=== PATIENT | male | born 1985 | race Two or more races ===

== ENCOUNTER 2020-10-26 13:07 | Emergency (ER) | payer SELFPAY ==
[~2020-10-26] VITALS: Ht 180.3 cm; Wt 86.2 kg
[2020-10-26 13:10] VITALS: BP 141/98
== END 2020-10-26 14:45 | disposition left against medical advice (07) ==
LOC: ER 13:07 → EDBD 13:07 → ER 14:45
DX: T39.9 Poisoning by, adverse effect of and underdosing of unspecified nonopioid analgesic, antipyretic and antirheumatic (principal); F17.210 Nicotine dependence, cigarettes, uncomplicated; F12.10 Cannabis abuse, uncomplicated; Y92.89 Other specified places as the place of occurrence of the external cause; Z53.29 Procedure and treatment not carried out because of patient's decision for other reasons